=== PATIENT | male | born 1960 | race Caucasian/White ===

== ENCOUNTER → 2024-12-26 | Outpatient (CLI) | payer OTHER, SELFPAY ==
--- NOTE | 2024-12-26 11:15 | NEURO_ITS ---
NCS and/or EMG Patient Report Ordering Doctor: Woody Chase DATE OF SERVICE: 12/26/24 Clinical Summary: 64 year old male patient with symptoms of numbness and tingling This EMG/NCS was performed to evaluate for Nerve Conduction Studies Summary: Nerve conduction studies were normal. Needle Examination Summary: Needle examination was normal. There was a higher proportion of motor unit action potentials with reduced recruitment, increased amplitude, increased duration, and polyphasia in the Impression: There is electrodiagnostic evidence of the following -
--- NOTE | 2024-12-26 11:15 | NEURO ---
NCS and/or EMG Patient Report Ordering Doctor: Woody Chase DATE OF SERVICE: 12/26/24 Clinical Summary: 64 year old male patient with symptoms of numbness and tingling in the distal right leg and foot along with foot drop. Nerve Conduction Studies Summary: Nerve conductions were performed in the right lower extremity. The right peroneal-EDB CMAP amplitude was reduced at the fibular head and knee. The right tibial-AH CMAP distal latency was prolonged. The right peroneal and tibial motor conduction was reduced diffusely. There was a greater than 10 m/s drop in the right peroneal motor conduction velocity across the fibular head. The right tibial and peroneal F-wave onset latencies were prolonged. Needle Examination Summary: Needle examination of select muscles of the right lower extremity demonstrated increased insertional activity and spontaneous activity (positive sharp waves and fibrillation potentials) in the right tibialis anterior and peroneus longus muscles. There was a higher proportion of motor unit action potentials with reduced recruitment, increased amplitude, increased duration, and polyphasia in the right tensor fascia carrol, semitendinosus, biceps femoris (long head), tibialis anterior, peroneus longus, and medial gastrocnemius muscles. Impression: This is an abnormal study. 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
== END | disposition home or self-care (01) ==
LOC: PSN 10:12
PROVIDERS: PCP Internal Medicine; Referring Provider Internal Medicine; Visit Provider Internal Medicine
DX: M21.371 Foot drop, right foot (principal); R20.0 Anesthesia of skin
CPT/HCPCS: 95886; 95908